=== PATIENT | female | born 1970 | race Caucasian/White ===

== ENCOUNTER 2018-07-15 22:21 | Inpatient (IN) | payer MEDICAID ==
[~2018-07-15] VITALS: Ht 167.6 cm; Wt 135.2 kg
[2018-07-15 22:57] LABS: BASOPHILS 0.4 % (0-2); HEMATOCRIT 48.7 % (36.0-48.0); HEMOGLOBIN 16.8 g/dL (12-16); IMMATURE GRANULOCYTES 0.4 % (0-5); MCH 30.4 pg (26.0-34.0); MCHC 34.5 g/dL (31.0-37.0); MCV 88.2 fL (80.0-100.0); MEAN PLATELET VOLUME 9.5 fL (7.4-10.4); MONOCYTES 8.9 % (2-11); NEUTROPHILS 61.3 % (40-80); PLATELET COUNT 260 10x3/uL (130-400); RBC 5.52 10x6/uL (4.00-5.40); RDW 12.4 % (11.5-14.5); WBC 13.9 10x3/uL (4.8-10.8)
[2018-07-15 22:59] LABS: APPEARANCE HAZY (CLEAR); BILIRUBIN NEGATIVE (NEGATIVE); COLOR YELLOW (YELLOW); GLUCOSE NEGATIVE (NEGATIVE); KETONE NEGATIVE (NEGATIVE); NITRITE POSITIVE (NEGATIVE); PROTEIN NEGATIVE (NEGATIVE); UROBILINOGEN NORMAL (NORMAL)
[2018-07-15 23:00] LABS: BACTERIA MANY /hpf (NONE SEEN); EPITHELIAL CELLS 0-5 /hpf (0-5); RED CELLS - URINE OCC /hpf (0-5); WHITE CELLS - URINE 0-5 /hpf (0-5)
[2018-07-15 23:13] LABS: ALBUMIN 4.3 g/dL (3.4-5.0); ALKALINE PHOSPHATASE 108 U/L (46-116); ALT (SGPT) 26 U/L (10-68); BILIRUBIN - TOTAL 0.71 mg/dL (0.2-1.3); CALC OSMOLALITY 278 mosm/kg (275-300); CALCIUM 9.3 mg/dL (8.5-10.1); CARBON DIOXIDE 25.5 mmol/L (21.0-32.0); CHLORIDE - SERUM 100 mmol/L (98-107); CREATININE - SERUM 1.1 mg/dL (0.6-1.3); GLUCOSE 109 mg/dL (74-106); POTASSIUM - SERUM 3.9 mmol/L (3.5-5.1); SODIUM 139 mmol/L (136-145); UREA NITROGEN 13 mg/dL (7-18); eGFR NON AFRICAN AMERICAN 56 mL/min (90-120)
[2018-07-15 23:14] LABS: AMYLASE - SERUM 96 U/L (25-115); LIPASE 160 U/L (73-393)
[2018-07-15 23:18] LABS: TROPONIN-I < 0.017 ng/mL (0.000-0.060)
--- NOTE | 2018-07-16 01:58 | NUR ---
REPORT RECEIVED FROM KATHLEEN MITCHELL.
--- NOTE | 2018-07-16 06:35 | NUR ---
NO CHANGES FROM PREVIOUS ASSESSMENT, CALL LIGHT IN REACH.
--- NOTE | 2018-07-16 07:30 | NUR ---
RECEIVED PT IN BED AAOX4 RESP UNLABORED STATES PAIN 3/10 TO LEFT ABDOMEN
[2018-07-16 10:41] VITALS: BMI 47.6
[2018-07-16 13:20] VITALS: BP 126/82; BMI 38.8
--- NOTE | 2018-07-16 14:09 | NUR ---
PT REFUSES SCDs
[2018-07-16 15:49] VITALS: BP 144/89
[2018-07-16 19:04] VITALS: Ht 167.6 cm; Wt 135.2 kg
--- NOTE | 2018-07-16 19:53 | NUR ---
RESUMED CARE OF PT, LYING IN BED RESPIRAITONS EVEN AND UNLABORED ON ROOM AIR. LEFT AND RIGHT HAND SALINE LOCKED. REQUESTS PAIN MEDICATION. CALL LIGHT IN REACH. SEE NURSE ASSESSMENT.
[2018-07-16 20:12] VITALS: BP 110/84
--- NOTE | 2018-07-16 23:54 | NUR ---
SHOWER AND LINENS CHANGED.
[2018-07-17] VITALS: BP 145/96
[2018-07-17 05:00] VITALS: BP 143/91
[2018-07-17 05:23] LABS: BASOPHILS 0.6 % (0-2); EOSINOPHILS 3.2 % (0-7); HEMATOCRIT 41.6 % (36.0-48.0); HEMOGLOBIN 13.9 g/dL (12-16); IMMATURE GRANULOCYTES 0.2 % (0-5); LYMPHOCYTES 39.4 % (15-50); MCH 29.6 pg (26.0-34.0); MCHC 33.4 g/dL (31.0-37.0); MCV 88.5 fL (80.0-100.0); MEAN PLATELET VOLUME 9.9 fL (7.4-10.4); MONOCYTES 9.3 % (2-11); NEUTROPHILS 47.3 % (40-80); RDW 12.5 % (11.5-14.5)
[2018-07-17 05:24] LABS: PLATELET COUNT 207 10x3/uL (130-400); WBC 9.3 10x3/uL (4.8-10.8)
[2018-07-17 05:31] LABS: ALBUMIN 3.3 g/dL (3.4-5.0); ANION GAP 11.4 mmol/L (8-16); BILIRUBIN - TOTAL 0.37 mg/dL (0.2-1.3); CALCIUM 8.6 mg/dL (8.5-10.1); CARBON DIOXIDE 27.7 mmol/L (21.0-32.0); CREATININE - SERUM 1.1 mg/dL (0.6-1.3); POTASSIUM - SERUM 4.1 mmol/L (3.5-5.1); PROTEIN - SERUM 6.2 g/dL (6.4-8.2)
--- NOTE | 2018-07-17 06:40 | NUR ---
PREOP MEDS GIVEN, REMAINS NPO
--- NOTE | 2018-07-17 07:30 | NUR ---
RECEIVED PT IN BED EYES CLOSED RESP UNLABORED PALE WILL CONTINUE TO MONITOR
--- NOTE | 2018-07-17 08:00 | NUR ---
RECEIVED PT BACK FROM GI LAB AAOX4 RESP UNLABORED DENIES ANY DISCFORT WILL CONTINUE TO MONITOR
[2018-07-17 12:01] VITALS: BP 132/73
[2018-07-17] MEDS ORDERED: PROTONIX40 MG PO (12:11)
[2018-07-17] MEDS ORDERED: LEVAQUIN750 MG PO (12:11)
--- NOTE | 2018-07-17 14:39 | NUR ---
REVIEWED DISCHARGE INSTRUCTIONS WITH PT STATES UNDERSTANDING COPY GIVEN DCD SALINE LOCKS TO RT AND LT HAND WITH IV CATHETERS INTACT X2 SITES FREE OF REDNESS OR EDEMA PT DISCHARGED HOME IN STABLE CONDITION WITH ALL PERSONAL BELONGINGS
--- NOTE | 2018-07-17 19:48 | MORECARE ---
CASE MANAGEMENT DISCHARGE SUMMARY PATIENT: KRISTOPHER LAUREANO UNIT: [id number] ADM DATE: 07/16/18 AGE: 48 : [birth year] SEX: F ROOM/BED: D.0868 AUTHOR: SRAVANTHI DUBON PHYSICIAN: REFERRING PHYSICIAN: HOWARD SHEIKH MD DATE OF SERVICE: 07/17/18 Discharge Plan Patient Name: KRISTOPHER LAUREANO Facility: [facility]:[place] : 1970 Planned Disposition: Home Anticipated Discharge Date: 07/17/18 Discharge Date: 07/17/2018 Expected LOS: 1 Initial Reviewer: [email or web address] Initial Review Date: 07/17/2018 Generated: 07/17/18 8:47 pm Comments DCP- Discharge Planning Updated by [email or web address]: Hector Mark on 07/17/18 6:[address] Patient Name: KRISTOPHER LAUREANO Admission Status: ER Accout number: [id number] Admission Date: 07-16-2018 : 1970 Admission Diagnosis:UNSPECIFIED ABDOMINAL PAIN Attending: HOWARD SHEIKH Current LOS: 1 Anticipated DC Date: 07-17-2018 Planned Disposition: Home Primary Insurance: MEDICAID [place] PENDING Discharge Planning Comments: CM MET WITH PT IN ROOM TO DISCUSS DISCHARGE PLANNING AND NEEDS. PT REPORTS LIVING AT HOME INDEPENDENTLY WITH HER FAMILY. PT MOVED FROM [place] TO [place] TO ASSIST HER PARENTS. PT HAS NO MEDICAL EQUIPMENT AND NO OUTSIDE SERVICES ASSISTING IN THE HOME. CM DISCUSSED AVAILABILITY OF HOME HEALTH, REHAB SERVICES AND MEDICAL EQUIPMENT. PT DENIES DISCHARGE NEEDS, REPORTS HER FAMILY WILL PICK HER UP FOR DISCHARGE HOME TODAY. 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 PT HAS APPLIED FOR MEDICAID WITH ASSISTANCE OF [employer] AT [facility] AND HAS HIS INFORMATION FOR FOLLOW UP. PT HAS ASSISTANCE OF FAMILY FOR MEDICATION PURCHASE IF NEEDED. RESEARCH ASSOCIATE PROFESSOR NURSE NOTIFIED. Distribution Center Administrator: Hector Mark DCPIA - Discharge Planning Initial Assessment Updated by [id number]: Hector Mark on 07/17/18 7:39 pm * Is the patient Alert and Oriented? Yes * How many steps to enter\exit or inside your home? NONE * PCP NONE - [facility] REFERRED * Pharm[facility] * Preadmission Environment Home with Family * ADLs Independent * Equipment None * Other Equipment NO MEDICAL EQUIPMENT PROVIDER PREFERENCE * List name and contact numbers for known caregivers / representatives who currently or will assist patient after discharge: VANESSA MCFARLANE, MOTHER, * Verbal permission to speak to the caregivers and representatives has been obtained from the patient. N/A * Community resources currently utilized None * Please name any agencies selected above. NONE * Additional services required to return to the preadmission environment? No * Can the patient safely return to the preadmission environment? Yes * Has this patient been hospitalized within the prior 30 days at any hospital? No Patient Name: KRISTOPHER LAUREANO Page [id number] at 1950 All edits/amendments must be made on the electronic document DICTATION DATE: 07/17/181946 COOKING CASING AND DRYING SUPERVISOR: ROSS 07/17/181946 RPT#: [id number] DC DATE:07/17/18 STATUS: DIS IN [facility] [address] [place] [address] END OF REPORT
[2018-07-18] MEDS ORDERED: BENTYL 20 MG TA20 MG PO (18:59)
== END 2018-07-17 14:39 | disposition home or self-care (01) | DRG 378 ==
LOC: D.ER 22:21 → D.M2 07-16 01:00
PROVIDERS: Family Medicine; Internal Medicine Gastroenterology; ADMIT Internal Medicine Nephrology
PROC: 0DB68ZX Excision of Stomach, Via Natural or Artificial Opening Endoscopic, Diagnostic (ICD-10-PCS; 2018-07-17)
PROC: 0DB98ZX Excision of Duodenum, Via Natural or Artificial Opening Endoscopic, Diagnostic (ICD-10-PCS; principal; 2018-07-17 07:00)
DX: K62.5 Hemorrhage of anus and rectum (principal); N39.0 Urinary tract infection, site not specified; K52.9 Noninfective gastroenteritis and colitis, unspecified; D50.9 Iron deficiency anemia, unspecified; K21.0 Gastro-esophageal reflux disease with esophagitis; K44.9 Diaphragmatic hernia without obstruction or gangrene; K29.70 Gastritis, unspecified, without bleeding; K29.80 Duodenitis without bleeding; K31.7 Polyp of stomach and duodenum

== ENCOUNTER 2018-07-18 16:12 | Emergency (ER) | payer SELFPAY ==
[~2018-07-18] VITALS: Ht 167.6 cm; Wt 113.6 kg
[~2018-07-18 16:12] MED LIST: LEVAQUIN750 MG PO; PROTONIX40 MG PO
[2018-07-18 16:14] VITALS: Ht 167.6 cm; Wt 113.6 kg
[2018-07-18 16:35] LABS: BASOPHILS 0.5 % (0-2); EOSINOPHILS 1.4 % (0-7); HEMATOCRIT 46.7 % (36.0-48.0); IMMATURE GRANULOCYTES 0.2 % (0-5); LYMPHOCYTES 27.3 % (15-50); MCH 29.8 pg (26.0-34.0); MCHC 34.3 g/dL (31.0-37.0); MEAN PLATELET VOLUME 9.3 fL (7.4-10.4); MONOCYTES 9.4 % (2-11); NEUTROPHILS 61.2 % (40-80); PLATELET COUNT 243 10x3/uL (130-400); RBC 5.37 10x6/uL (4.00-5.40); RDW 12.4 % (11.5-14.5)
[2018-07-18 16:37] LABS: APPEARANCE CLEAR (CLEAR); BILIRUBIN NEGATIVE (NEGATIVE); COLOR STRAW (YELLOW); GLUCOSE NEGATIVE (NEGATIVE); KETONE NEGATIVE (NEGATIVE); NITRITE NEGATIVE (NEGATIVE); PROTEIN NEGATIVE (NEGATIVE); UROBILINOGEN NORMAL (NORMAL)
[2018-07-18 16:50] LABS: ANION GAP 15.6 mmol/L (8-16); BILIRUBIN - TOTAL 0.49 mg/dL (0.2-1.3); CALCIUM 9.2 mg/dL (8.5-10.1); CARBON DIOXIDE 24.1 mmol/L (21.0-32.0); CREATININE - SERUM 1.2 mg/dL (0.6-1.3); POTASSIUM - SERUM 3.7 mmol/L (3.5-5.1); PROTEIN - SERUM 7.5 g/dL (6.4-8.2)
[2018-07-18 16:52] LABS: BILIRUBIN - DIRECT 0.07 mg/dL (0.00-0.30); BILIRUBIN - INDIRECT 0.42 mg/dL (0.00-1.00)
[2018-07-18] MEDS ORDERED: BENTYL 20 MG TA20 MG PO (18:59)
[2018-07-18 19:29] VITALS: BP 170/92
== END 2018-07-18 19:30 | disposition home or self-care (01) ==
LOC: D.ER 16:12
PROVIDERS: Family Medicine
DX: R10.84 Generalized abdominal pain (principal); K58.9 Irritable bowel syndrome, unspecified

== ENCOUNTER → 2018-08-21 10:30 | Outpatient (CLI) | payer MEDICAID ==
[2018-07-18 16:14] VITALS: BMI 40.4
[~2018-08-21 10:30] MED LIST changes: +BENTYL 20 MG TA20 MG PO
== END | disposition home or self-care (01) ==
LOC: D.MRI 10:30
PROVIDERS: ATTEND Clinical Nurse Specialist Family Health
DX: M25.562 Pain in left knee (principal)

== ENCOUNTER 2018-09-10 06:45 | Day surgery (SDC) | payer MEDICAID ==
[2018-07-18 16:14] VITALS: Ht 167.6 cm; Wt 122.5 kg
[2018-09-09 15:53] LABS: HEMATOCRIT 45.1 % (36.0-48.0); HEMOGLOBIN 15.6 g/dL (12-16); MCH 30.5 pg (26.0-34.0); MCHC 34.6 g/dL (31.0-37.0); MCV 88.1 fL (80.0-100.0); MEAN PLATELET VOLUME 9.2 fL (7.4-10.4); RBC 5.12 10x6/uL (4.00-5.40); RDW 12.5 % (11.5-14.5); WBC 13.5 10x3/uL (4.8-10.8)
[~2018-09-10] VITALS: Ht 167.6 cm; Wt 122.5 kg
--- NOTE | ~2018-09-10 | OP ---
PATIENT NAME: KRISTOPHER LAUREANO MEDICAL RECORD: [id number] :[birth year] LOCATION:D.OPS ADMISSION DATE: SURGEON: THOMAS SMITH MD DATE OF OPERATION: 09/10/2018 PREOPERATIVE DIAGNOSIS: Lateral meniscus tear of the left knee. POSTOPERATIVE DIAGNOSES: 1. Lateral meniscus tear of the left knee. 2. Central osteophyte tibial plateau. PROCEDURES: 1. Arthroscopic partial lateral meniscectomy of the left knee. 2. Arthroscopic osteophyte removal with chondroplasty and synovectomy. SURGEON: Thomas Smith MD ANESTHESIA: General. INTRAOPERATIVE COMPLICATIONS: None. SUMMARY OF PATHOLOGIC FINDINGS: As noted in the preoperative MRI, the patient had a complex tear of the posterior horn of the lateral meniscus. 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 These were taken down as they did seem to be interfering with the knee in extension. OPERATIVE SUMMARY IN DETAIL: After obtaining appropriate preoperative orthopedic surgery consent as well as anesthetic consultation, evaluation, and clearance, the patient was brought to the operating room and placed on the operating room table in supine position. After adequate general laryngeal mask airway was administered, tourniquet was placed on the proximal aspect of the left lower extremity. Left lower extremity was prepped and draped in routine sterile fashion. The leg was elevated and exsanguinated, the tourniquet was inflated to 350 mmHg. Routine inferolateral portal was established followed by superomedial portal and inferomedial portal. Diagnostic arthroscopy did reveal the above findings. Attention was first turned to debridement of the lateral meniscus. Lateral meniscus was debrided back to stable lateral meniscal elements. Essentially, the patient has good retained menisci, but the complex tear was debrided in its entirety. At this point, attention was turned to the 2 irregular appearing osteophytes just anterior to the medial tibial spine. These were taken down with the 5.0 resector. Having completed this, the knee was insufflated with 30 cc of 0.25% Marcaine with epinephrine and 80 mg of Depo-Medrol. Arthroscopy portals were closed in routine interrupted fashion using 4-0 Prolene. Sterile dressings were applied. The patient was awakened and taken to the recovery room in stable condition. All final needle and sponge counts were correct. TRANSINT:[id number] Voice Confirmation ID: [id number] DOCUMENT ID: [id number] OPERATIVE REPORT [id number] KRISTOPHER LAUREANO MD, THOMAS MCCANN CC: [id number] DICTATION DATE: 09/11/18 1139 RESIDENT SERVICE COORDINATOR: 09/11/18 1227 [facility] 09/10/18 [place] [id number] [place] [id number]
[~2018-09-10 06:45] MED LIST changes: +AMBIEN5 MG PO; +LISINOPRIL10 MG PO
[2018-09-10 07:45] VITALS: BP 121/82; BMI 42.0
[2018-09-10] MEDS ORDERED: HYDROCODON-ACE1 EA10 PO (10:04)
--- NOTE | 2018-09-10 10:56 | NUR ---
1043 ANESTHESIA AT BEDSIDE TO REBLOCK LEFT KNEE. DR CISNEROS AT BEDSIDE WILL CONTINUE TO MONITOR.
== END 2018-09-10 13:50 | disposition home or self-care (01) ==
LOC: D.OPS 06:45
PROVIDERS: Anesthesiology; ATTEND Orthopaedic Surgery
DX: S83.272A Complex tear of lateral meniscus, current injury, left knee, initial encounter (principal); M25.762 Osteophyte, left knee; M94.262 Chondromalacia, left knee; Z01.812 Encounter for preprocedural laboratory examination

== ENCOUNTER 2018-09-23 10:13 | Emergency (ER) | payer MEDICAID ==
[~2018-09-23] VITALS: Ht 167.6 cm; Wt 122.7 kg
[~2018-09-23 10:13] MED LIST changes: +HYDROCODON-ACE1 EA10 PO
[2018-09-23 10:33] VITALS: Ht 167.6 cm; Wt 122.7 kg
[2018-09-23] MEDS ORDERED: CHLORTHALIDONE25 MG PO (10:36)
[2018-09-23 11:18] LABS: BASOPHILS 0.5 % (0-2); EOSINOPHILS 4.1 % (0-7); HEMATOCRIT 47.4 % (36.0-48.0); HEMOGLOBIN 16.6 g/dL (12-16); IMMATURE GRANULOCYTES 0.3 % (0-5); LYMPHOCYTES 30.6 % (15-50); MCH 30.2 pg (26.0-34.0); MCV 86.3 fL (80.0-100.0); MEAN PLATELET VOLUME 9.2 fL (7.4-10.4); MONOCYTES 8.8 % (2-11); NEUTROPHILS 55.7 % (40-80); RBC 5.49 10x6/uL (4.00-5.40); RDW 12.5 % (11.5-14.5); WBC 11.8 10x3/uL (4.8-10.8)
[2018-09-23 11:20] LABS: PLATELET COUNT 286 10x3/uL (130-400)
[2018-09-23 11:38] LABS: ALBUMIN 4.2 g/dL (3.4-5.0); ANION GAP 16.4 mmol/L (8-16); BILIRUBIN - TOTAL 0.6 mg/dL (0.2-1.3); CALCIUM 9.6 mg/dL (8.5-10.1); CARBON DIOXIDE 24.8 mmol/L (21.0-32.0); CREATININE - SERUM 1.1 mg/dL (0.6-1.3); POTASSIUM - SERUM 4.2 mmol/L (3.5-5.1); PROTEIN - SERUM 8.3 g/dL (6.4-8.2)
[2018-09-23 11:38] LABS: APPEARANCE HAZY (CLEAR); BILIRUBIN NEGATIVE (NEGATIVE); COLOR YELLOW (YELLOW); GLUCOSE NEGATIVE (NEGATIVE); KETONE NEGATIVE (NEGATIVE); NITRITE NEGATIVE (NEGATIVE); PROTEIN NEGATIVE (NEGATIVE); SPECIFIC GRAVITY 1.015 (1.005-1.020); UROBILINOGEN NORMAL (NORMAL)
[2018-09-23 15:30] VITALS: BP 130/91
== END 2018-09-23 15:30 | disposition home or self-care (01) ==
LOC: D.ER 10:13
PROVIDERS: Family Medicine
DX: E86.0 Dehydration (principal); T50.2X5A Adverse effect of carbonic-anhydrase inhibitors, benzothiadiazides and other diuretics, initial encounter; Y92.89 Other specified places as the place of occurrence of the external cause

== ENCOUNTER → 2018-10-09 07:50 | Outpatient (CLI) | payer MEDICAID ==
[~2018-10-09 07:50] MED LIST changes: +CHLORTHALIDONE25 MG PO
--- NOTE | 2018-10-14 10:39 | EC ---
PATIENT:KRISTOPHER LAUREANO DATE OF SERVICE: 10/09/18 SEX: F MEDICAL RECORD: [id number] DATE OF : [birth year] LOCATION:[facility] AGE OF PATIENT: 48 ADMISSION DATE: 10/09/18 REFERRING PHYSICIAN: INTERPRETING PHYSICIAN: RAQUEL GONZALEZ MD ECHOCARDIOGRAM REPORT ECHO CHARGES 4 ECHO COMPLETE Date: 10/09/18 CLINICAL DIAGNOSIS: ANGINA/GUTIÉRREZ/HTN ECHOCARDIOGRAPHIC MEASUREMENTS (adult normal given) AC root (d.<3.7cm) 2.8 cm LV Septum d (<1.2 cm> 1.3 cm Valve Excursion 1.8 cm LV Septum (systole) 1.5 cm Left Atria (s.<4.0cm> 3.8 cm LVPW d(<1.2cm) 1.4 cm RV (d.<2.3cm) 2.7 cm LVPW (sytole) 1.8 cm LV diastole(<5.6CM) 4.6 cm MV E-F(>70mm/sec) cm LV systole 2.4 cm LVOT Diameter 2.1 cm MV exc.(>10mm) cm Est.ejection fraction (50-75%) % DOPPLER: LVIT cm/sec A 35.0 cm/sec E 54.0 cm/sec LA cm/sec RVSP 30.0 mmHg LVOT 85.0 cm/sec AOP1/2T m/s Asc. Ao 128 cm/sec RVOT 44.0 cm/sec RA cm/sec PA 83.0 cm/sec AV Gradient Peak 6.5 mmHg AV Mean 3.2 mmHg AV Area 2.0 cm MV Gradient Peak 2.5 mmHg MV Mean 0.95 mmHg MV Area cm COMMENTS: OP - HC Emergency Room Specialist: [place] KATE [place] Asbestos Removal Supervisor: 1 Dr. Gonzalez TAPE# PACS Pericardial Effusion N DATE OF SERVICE: 10/09/2018 FINDINGS: 1. Left ventricular chamber size is within normal limits. Left ventricular systolic function is normal. Overall ejection fraction estimated at 55%. 2. Left atrium, right atrium, and right ventricular chamber sizes are within normal limits. 3. Valvular structures have normal structure and motion. 4. Doppler interrogation reveals trace mitral regurgitation, trace tricuspid regurgitation. No other valvular insufficiency or stenosis. Pulmonary systolic ECHOCARDIOGRAM REPORT [id number] EBERS,KRISTOPHER CATHI pressure is estimated at 30 mmHg. 5. No evidence of pericardial effusion or left ventricular thrombus. TRANSINT:[id number] Voice Confirmation ID: [id number] DOCUMENT ID: [id number] RAQUEL GONZALEZ MD at 1039 CC: [id number] DICTATION DATE: 10/10/18 0953 FARM MACHINE TENDER: 10/10/18 1010 DEP CLI 10/09/18 [place] [id number] [place] [address]
--- NOTE | 2018-10-14 10:39 | ST ---
PATIENT:KRISTOPHER LAUREANO MEDICAL RECORD: [id number] SEX: F LOCATION:[facility] ORDER #: ADMISSION DATE: 10/09/18 AGE OF PATIENT: 48 REFERRING PHYSICIAN: INTERPRETING PHYSICIAN: RAQUEL SANCHEZ MD DATE OF SERVICE: 10/09/2018 PROCEDURE: Nuclear stress test. INDICATIONS: Angina, shortness of breath, hypertension. She was exercised on standard Masoud protocol for 5 minutes achieving greater than 85% max target heart rate response with 33 mCi of sestamibi injected at peak stress, 11 mCi used previously for rest images. FINDINGS: Gated SPECT reveals preserved ejection fraction at 67% with decreased thickening and brightening throughout the inferior segments. SPECT imaging: Cardiolite was used as myocardial perfusion agent. There is a fixed perfusion defect inferiorly. This could possibly be artifactual from diaphragmatic attenuation. There is clearly no reversibility. The remaining segments as well show no reversibility. OVERALL IMPRESSION: This is a minimally abnormal nuclear stress test. Fixed perfusion defect inferiorly, very well may be artifactual from diaphragmatic attenuation. No ongoing ischemic burden and preserved ejection fraction at 67%. Continue medical management of the coronary artery disease and cardiac risk factors. TRANSINT:[id number] Voice Confirmation ID: [id number] DOCUMENT ID: [id number] RAQUEL SANCHEZ MD at 1039 CC: [id number] DICTATION DATE: 10/09/18 1226 ROUGHER MACHINE OPERATOR: 10/10/18 0729 [facility] CLI 10/09/18 [place] [id number]
== END | disposition home or self-care (01) ==
LOC: D.HCCARDIO 07:50
DX: I20.9 Angina pectoris, unspecified (principal); R07.9 Chest pain, unspecified

== ENCOUNTER → 2019-06-15 20:00 | Outpatient (CLI) | payer OTHER ==
[2018-10-16 09:14] VITALS: BMI 43.6
== END | disposition home or self-care (01) ==
LOC: D.MAMMO 14:15
PROVIDERS: ATTEND Nurse Practitioner
DX: Z12.31 Encounter for screening mammogram for malignant neoplasm of breast (principal)

== ENCOUNTER 2019-11-11 07:15 | Day surgery (SDC) | payer OTHER ==
[2019-11-09 10:25] LABS: HEMATOCRIT 45.2 % (36.0-48.0); HEMOGLOBIN 14.8 g/dL (12-16); MCH 29.7 pg (26.0-34.0); MCHC 32.7 g/dL (31.0-37.0); MCV 90.8 fL (80.0-100.0); MEAN PLATELET VOLUME 8.8 fL (7.4-10.4); RBC 4.98 10x6/uL (4.00-5.40); RDW 12.9 % (11.5-14.5); WBC 9.3 10x3/uL (4.8-10.8)
[~2019-11-11] VITALS: Ht 167.6 cm; Wt 131.5 kg
[~2019-11-11 07:15] MED LIST changes: +CARAFATE1 G PO; +CELEXA40 MG PO; +PROTONIX20 MG PO
[2019-11-11 07:42] VITALS: BP 128/91; Ht 167.6 cm; Wt 131.5 kg
[2019-11-11] MEDS ORDERED: HYDROCODON-ACE1 EA10 PO (09:49)
--- NOTE | 2019-11-11 13:07 | NUR ---
1120-REMOVED IV WITH CATH INTACT,DISPOSED INTO SHARPS,COVERED WITH GUAZE,SECURED WITH MEDIPORE TAPE. VSS.NO DISTRESS. NO N/V. DRESSING CDI. CAP REFILL WNL,STRONG REGULAR PEDAL PULSE,CAP REFILL WNL.
--- NOTE | 2019-11-11 13:09 | NUR ---
1135-ESCORTED OUT VIA W/C WITH MOTHER AWAITING TO DRIVE HOME
--- NOTE | 2019-11-11 13:09 | NUR ---
1128-PAIN 09/23. REVIEWED DISCHARGE INSTRUCTIONS AND FOLLOW UP APPOINTMENT. VERBALIZED UNDERSTANDING.
--- NOTE | 2019-11-15 08:45 | OP ---
PATIENT NAME: KRISTOPHER LAUREANO MEDICAL RECORD: [id number] :66 LOCATION:D.OPS ADMISSION DATE: SURGEON: THOMAS SMITH MD DATE OF OPERATION: 11/11/2019 PREOPERATIVE DIAGNOSIS: Medial meniscus tear of the left knee. POSTOPERATIVE DIAGNOSES: Medial meniscus tear of the left knee plus lateral meniscus tear of the left knee. PROCEDURES: 1. Arthroscopic partial medial meniscectomy. 2. Arthroscopic partial lateral meniscectomy. SURGEON: Thomas Smith MD ANESTHESIA: General. INTRAOPERATIVE COMPLICATIONS: None. SUMMARY OF PATHOLOGIC FINDINGS: The patient has a complex tear of the posterior horn of the medial meniscus more strikingly; however, not appreciated on MRI. The patient had a very complex tear of the posterior medial aspect of the lateral meniscus. There were areas of grade I and II chondromalacia of the medial femoral condyle. No kissing lesions. This does appear to be meniscal pathology degenerated. There was no substantial chondromalacia of the lateral femoral condyle or patellofemoral joint. OPERATIVE SUMMARY IN DETAIL: After obtaining the appropriate preoperative orthopedic surgery consent as well as anesthetic consultation, evaluation and clearance, the patient was brought to the operating room and placed on the operating table in a supine position. After general laryngeal mask airway was administered, tourniquet was placed about the proximal aspect of left lower extremity. Left lower extremity was then prepped and draped in routine sterile fashion. The leg was elevated and exsanguinated, tourniquet was inflated to 350 mmHg. At this point, appropriate timeout was taken and agreed upon by all given the patient's unique identifiers. Routine inferolateral portal was established followed by superomedial portal and inferomedial portal. Diagnostic arthroscopy revealed the above findings. Attention was first turned to the medial meniscus. Combination of meniscotomes as well as Arthrex resector were utilized to debride the meniscus back to stable meniscal elements. Gentle chondral debridement was done at the area of a small, but loose chondral flap. With the knee in a [id number] position, the patient's large posterior, medial and lateral meniscal horn tear was noted. This was debrided with combination of arthroscopy resector as well as arthroscopic meniscotomes. This resulted in excellent debridement; however, good stable meniscus and posterior medial meniscal root was intact. Knee was insufflated with 30 cc of 0.25% Marcaine with epinephrine and 40 mg Depo-Medrol. Arthroscopy portals were closed in routine interrupted fashion using 4-0 Prolene. Sterile dressings were applied. Tourniquet was deflated. The patient awakened and taken to recovery room in stable condition. All final needle and sponge counts were correct. TRANSINT:[id number] Voice Confirmation ID: [id number] DOCUMENT ID: [id number] OPERATIVE REPORT [id number] KRISTOPHER LAUREANO MD, THOMAS MCCANN at 0845 CC: [id number] DICTATION DATE: 11/11/19 0952 OPERATION RESEARCH ANALYST: 11/11/19 1340 [facility] [place]/11/19 [place] [id number] [place] [address]
== END 2019-11-11 11:35 | disposition home or self-care (01) ==
LOC: D.OPS 07:15 → D.PAN 10:45 → D.OPS 10:45
PROVIDERS: Anesthesiology; ATTEND Orthopaedic Surgery
DX: S83.282A Other tear of lateral meniscus, current injury, left knee, initial encounter (principal); S83.242A Other tear of medial meniscus, current injury, left knee, initial encounter; X58.XXXA Exposure to other specified factors, initial encounter; K21.9 Gastro-esophageal reflux disease without esophagitis; M25.562 Pain in left knee

== ENCOUNTER → 2020-11-01 10:16 | Outpatient (CLI) | payer OTHER ==
[2020-06-30 12:16] VITALS: BMI 43.6
[~2020-11-01 10:16] MED LIST changes: +COMPAZINE25 MG RC; +MECLIZINE HCL25 MG PO; +ZOFRAN ODT4 MG/UDTAB PO
== END | disposition home or self-care (01) ==
LOC: D.US 10:00
PROVIDERS: ATTEND Nurse Practitioner
DX: R10.12 Left upper quadrant pain (principal)